=== PATIENT | male | born 2000 | race Caucasian/White ===

== ENCOUNTER 2018-12-18 01:34 | Emergency (ER) | payer BC ==
[2018-12-18 02:06] LABS: Bilirubin Negative (Negative); Blood, Urine Negative (Negative); Clarity CLOUDY (Clear); Glucose, Urine (Dipstick) Negative (Negative); Leukocyte Negative (Negative); Nitrite Negative (Negative); Protein, Urine (Dipstick) Negative (Neg-Trace); Specific Gravity, Urine 1.018 (1.002-1.036)
[2018-12-18 02:13] LABS: #Basophils 0.1 thou/uL (0.0-0.2); RBC Distribution Width 11.3 % (11.5-14.5); White Blood Cell (WBC) Count 8.3 thou/uL (4.8-10.8)
[2018-12-18 02:31] LABS: #Eosinphils 0.9 thou/uL (0.0-0.7); #Lymphocytes 3.6 thou/uL (1.20-3.40); #Monocytes 0.5 thou/uL (0.11-0.59); #Neutrophils 3.1 thou/uL (1.40-6.50); %Basophils 1.6 % (0.0-1.0); %Eosinophils 11.4 % (0.0-10.0); %Lymphocytes 43.1 % (28.0-48.0); %Monocytes 6.5 % (0.0-4.0); %Neutrophils 37.4 % (31.0-61.0); Hemoglobin 15.5 g/dL (14.0-18.0); Mean Corpuscular HGB CONC 34.1 g/dL (32.0-36.0); Mean Corpuscular Hemoglobin 31.4 pg (25.0-35.0); Mean Corpuscular Volume 92.2 fL (78.0-98.0); Mean Platelet Volume 7.5 fL (7.4-10.4); Platelet Count 243 thou/uL (130-400); Red Blood Cell (RBC) Count 4.95 mill/uL (4.00-5.20)
[2018-12-18 02:35] LABS: ALT (SGPT) 14 U/L (8-55); AST (SGOT) 14 U/L (5-34); Albumin 4.9 g/dL (3.5-5.0); Alkaline Phosphatase 94 U/L (Less than 750); Anion Gap 14 mmol/L (10-20); BUN (Urea Nitrogen) 12 mg/dL (8.9-20.6); Bilirubin, Total 2.1 mg/dL (0.2-1.2); Calc. Creatinine Clearance 0 mL/min (70-130); Calcium 9.5 mg/dL (7.8-10.44); Carbon Dioxide 26 mmol/L (22-29); Chloride 105 mmol/L (98-107); Estimated GFR-MDRD Greater than 90; Globulin 2.4 g/dL (2.4-3.5); Glucose 91 mg/dL (70-105); Lipase 12 U/L (8-78); Potassium 3.8 mmol/L (3.5-5.1); Protein, Total 7.3 g/dL (6.0-8.3); Sodium 141 mmol/L (136-145)
[2018-12-18] MEDS ORDERED: Morphine 4 MG/ML VIAL ONE (03:39)
[2018-12-18] MEDS ORDERED: Ondansetron PF 4 MG/2 ML Vial ONE (03:40)
[2018-12-18] MEDS ORDERED: Glycopyrrolate 0.2 MG/ML 5 ML SYRINGE SLOW IVP SCH (03:45)
[2018-12-18] MEDS ORDERED: Iopamidol 370 76% 100 ML VIAL ONE (12:45)
--- NOTE | 2018-12-18 16:26 | CT ---
PRELIMINARY REPORT/[facility]/EMERGENTY AFTER-HOURS PROCEDURE CT Abdomen and Pelvis With Contrast EXAM DATE/TIME: 12/18/2018 3:33 AM CLINICAL HISTORY: 18 years old, male; Pain; Abdominal pain; Generalized; Patient HX: Patient reports 1 week of severe, diffuse, crampy abdominal pain. Patient went to see gi and was prescribed hyoscyamine with no improve ment. Patient reports 1 episode of diarrhea with nivia blood. Endorses testicular pain today. Endorses chills and shaking. Denies recent travel, antibiotic use, or bad food exposure. TECHNIQUE: Axial computed tomography images of the abdomen and pelvis with intravenous contrast. Coronal reforma tted images were created and reviewed. COMPARISON: No relevant prior studies available. FINDINGS: Lower thorax: No acute findings. ABDOMEN: Liver: No acute findings. No mass. Gallbladder and bile ducts: No calcified stones. No ductal dilation. Pancreas: No acute findings. No mass. No ductal dilation. Spleen: No acute findings. No mass. Adrenals: No acute findings. No mass. Kidneys and ureters: No acute findings. No significant hydronephrosis. Small right renal possible cys t. Stomach and bowel: Fecal loading. Diverticulosis. No evidence of bowel obstruction. Appendix: No evidence of appendicitis. PELVIS: Bladder: No acute findings. Reproductive: No acute findings. ABDOMEN and PELVIS: Intraperitoneal space: No free air. No significant fluid collection. Bones/joints: No acute fracture. Soft tissues: No acute findings. Vasculature: No acute findings. No abdominal aortic aneurysm. Lymph nodes: No significant lymphadenopathy. Small and few prominent mesenteric lymph nodes. IMPRESSION: No acute findings. Thank you for allowing us to participate in the care of your patient. Dictated and Authenticated by: Arley Hooper MD 12/18/2018 4:58 AM Central Time ([place] & [place]) FINAL REPORT EMERGENT AFTER HOURS CT OF THE ABDOMEN AND PELVIS WITH CONTRAST: FINDINGS/IMPRESSION: I agree with the findings and impression given in the preliminary report per [facility] physician. 1. No evidence of acute intraabdominal/pelvic abnormality. 2. Small right renal cyst. POS: [facility]
== END 2018-12-18 05:46 | disposition home or self-care (01) ==
LOC: ERS 01:34
DX: R10.84 Generalized abdominal pain (principal)
CPT/HCPCS: 36415; 74177; 80053; 81003; 83690; 85025; 96374; 96375; J2270; J2405; Q9967